=== PATIENT | female | born 1940 | race Hispanic/Latino ===

== ENCOUNTER 2018-09-08 12:30 | Observation (INO) | payer MEDICARE ==
[2018-09-08 12:45] VITALS: BMI 31.9
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
[2018-09-08] MEDS ORDERED: Sodium Chloride 0.9% 1,000 ML IV SCH (13:00)
--- NOTE | 2018-09-08 13:21 | CT ---
Date of service: 09/08/2018 PROCEDURE: CT HEAD WITHOUT CONTRAST. HISTORY: Code Stroke COMPARISON: None available. TECHNIQUE: Axial computed tomography images were obtained through the head/brain without intravenous contrast. Radiation dose: Total exam DLP = 823.2 mGy-cm. This CT exam was performed using one or more of the following dose reduction techniques: Automated exposure control, adjustment of the mA and/or kV according to patient size, and/or use of iterative reconstruction technique. FINDINGS: HEMORRHAGE: No intracranial hemorrhage. BRAIN: Focal of high attenuation at the left caudate head noted likely represent calcification. The possibility of acute hemorrhage is less likely. No evidence of mass effect or edema in the brain parenchyma. No atrophy or chronic microvascular ischemic changes. VENTRICLES: Unremarkable. No hydrocephalus. CALVARIUM: Unremarkable. PARANASAL SINUSES: Unremarkable as visualized. No significant inflammatory changes. MASTOID AIR CELLS: Unremarkable as visualized. No inflammatory changes. OTHER FINDINGS: None. IMPRESSION: No evidence of acute intracranial hemorrhage mass effect or midline shift. Focal high attenuation at the left caudate head likely represent dystrophic calcification. The possibility of acute hemorrhage is less likely. No evidence of adjacent edema or significant mass effect. Findings reported to the emergency room physician taking care of the patient Dr. Ortiz at 1:10 p.m. on 09/08/2018
[2018-09-08] MEDS ORDERED: Iohexol 350 MG/100 ML VIAL ONE (13:26)
[2018-09-08 13:27] LABS: BASO # 0.01 K/mm3 (0.0-2.0); BASO % 0.1 % (0.0-3.0); EOS # 0.3 (0.0-0.7); EOS % 3.5 % (1.5-5.0); LYMPH # 2.5 (1.2-3.4); LYMPH % 34.1 % (22.0-35.0); MEAN CELL VOLUME 89.2 fl (80.0-105.0); MEAN CORPUSCULAR HEMOGLOBIN 28.7 pg (25.0-35.0); MEAN CORPUSCULAR HGB CONC 32.2 g/dl (31.0-37.0); MEAN PLATELET VOLUME 9.4 fl (7.0-11.0); MONO # 0.7 (0.1-0.6); MONO % 9.1 % (1.0-6.0); RBC 4.18 10^6/uL (3.5-6.1); RED CELL DISTRIBUTION WIDTH 13.6 % (11.5-14.5); WHITE BLOOD COUNT 7.4 10^3/uL (4.5-11.0)
[2018-09-08 13:35] LABS: INR 0.96; PARTIAL THROMBOPLASTIN TIME 31.7 Seconds (26.9-38.3); PROTHROMBIN TIME 10.8 SECONDS (9.4-12.5)
--- NOTE | 2018-09-08 13:45 | RAD ---
Date of service: 09/08/2018 HISTORY: Code Stroke COMPARISON: Comparison is made with 03/30/2014 FINDINGS: LUNGS: No active pulmonary disease. PLEURA: No significant pleural effusion identified, no pneumothorax apparent. CARDIOVASCULAR: No aortic atherosclerotic calcification present. Normal cardiac size. No pulmonary vascular congestion. OSSEOUS STRUCTURES: No significant abnormalities. VISUALIZED UPPER ABDOMEN: Normal. OTHER FINDINGS: None. IMPRESSION: No active disease.
[2018-09-08 13:49] LABS: ALB/GLOB RATIO 1.4 (1.1-1.8); ALBUMIN 4.2 g/dL (3.0-4.8); ALT/SGPT 9 U/L (7-56); AST/SGOT 22 U/L (14-36); BLOOD UREA NITROGEN 22 mg/dL (7-21); CALCIUM 9.4 mg/dL (8.4-10.5); GFR NON-AFRICAN AMERICAN > 60; HDL CHOLESTEROL 69 mg/dL (29-60)
[2018-09-08 14:00] LABS: LDL CHOLESTEROL 75 mg/dL (0-129)
[2018-09-08 14:04] LABS: TROPONIN I < 0.01 ng/mL
--- NOTE | 2018-09-08 14:25 | CARD ---
APPROVED REPORT Date of service: 09/08/2018 EKG Measurement Heart [id number] <Conclusion> Normal sinus rhythm Inferior-posterior infarct, age undetermined Abnormal ECG
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
--- NOTE | 2018-09-08 14:59 | CT ---
Date of service: 09/08/2018 PROCEDURE: CT Angiography of the neck and head with contrast HISTORY: cva COMPARISON: None. TECHNIQUE: Contiguous axial images of the neck and head were obtained from the vertex to the superior mediastinum in the arteriographic phase of enhancement. Coronal and sagittal reformats or also generated. IV contrast dose: 100 mL of Omnipaque 350 intravenously Radiation dose: Total exam DLP = 504.97 mGy-cm. This CT exam was performed using one or more of the following dose reduction techniques: Automated exposure control, adjustment of the mA and/or kV according to patient size, and/or use of iterative reconstruction technique. FINDINGS: RIGHT CAROTID ARTERIES: Common Carotid Artery: Normal. Carotid Bifurcation: Normal. Internal Carotid Artery:Normal. External Carotid Artery (proximal branches): Normal. LEFT CAROTID ARTERIES: Common Carotid Artery: Normal. Carotid Bifurcation: Normal. Internal Carotid Artery:Normal. External Carotid Artery (proximal branches): Normal. VERTEBRAL ARTERIES: Right Vertebral Artery: Normal. Left Vertebral Artery: Normal. OTHER FINDINGS: no aortic atherosclerotic calcification or mural plaque present. INTERNAL CEREBRAL ARTERIES: Unremarkable. The skull base, petrous, cavernous and supraclinoid segments are bilaterally widely patent. ANTERIOR CEREBRAL ARTERIES: Unremarkable. A1 and A2 segments are widely patent. Smaller distal branches unremarkable, as visualized. MIDDLE CEREBRAL ARTERIES: Unremarkable. M1 and M2 segments are widely patent. Perisylvian branches grossly symmetric. POSTERIOR CIRCULATION: Basilar Artery: Unremarkable. Distal Vertebral Arteries: Unremarkable. Posterior Cerebral Arteries: Unremarkable. Posterior Inferior Cerebellar Arteries: Unremarkable. ANEURYSM/ VASCULAR MALFORMATIONS: None. OTHER FINDINGS: IMPRESSION: No evidence of arterial occlusion or critical stenosis.
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
[2018-09-08 16:49] VITALS: O2SAT 95
[2018-09-08] MEDS ORDERED: Pneumococcal 23-Valent Vaccine IM ONE (20:53)
[2018-09-08] MEDS ORDERED: Influenza Vaccine 60 mcg/0.5 mL SYR (4YR UP) IM ONE (20:53)
[2018-09-09] MEDS ORDERED: Pantoprazole 40 mg EC Tab PO SCH (07:30)
[2018-09-09 07:32] VITALS: BP 125/62; RESP 20; TEMP 98.2
[2018-09-09 07:45] LABS: BASO # 0.01 K/mm3 (0.0-2.0); BASO % 0.2 % (0.0-3.0); EOS # 0.3 (0.0-0.7); EOS % 4.2 % (1.5-5.0); HEMOGLOBIN 11.3 g/dL (12.0-16.0); LYMPH # 2.2 (1.2-3.4); LYMPH % 36.4 % (22.0-35.0); MEAN CELL VOLUME 90.1 fl (80.0-105.0); MEAN CORPUSCULAR HEMOGLOBIN 28.6 pg (25.0-35.0); MEAN CORPUSCULAR HGB CONC 31.7 g/dl (31.0-37.0); MEAN PLATELET VOLUME 9.6 fl (7.0-11.0); MONO # 0.5 (0.1-0.6); MONO % 7.9 % (1.0-6.0); RBC 3.95 10^6/uL (3.5-6.1); RED CELL DISTRIBUTION WIDTH 13.7 % (11.5-14.5); WHITE BLOOD COUNT 5.9 10^3/uL (4.5-11.0)
[2018-09-09 08:20] LABS: ALB/GLOB RATIO 1.3 (1.1-1.8); ALBUMIN 3.8 g/dL (3.0-4.8); ALT/SGPT 16 U/L (7-56); AST/SGOT 37 U/L (14-36); BLOOD UREA NITROGEN 23 mg/dL (7-21); GFR NON-AFRICAN AMERICAN > 60
[2018-09-09] MEDS ORDERED: Levothyroxine 50 MCG TAB PO SCH (10:00)
--- NOTE | 2018-09-09 13:50 | CP.PCM.PN ---
Subjective - Date & Time of Evaluation Date of Evaluation: 09/09/18 Time of Evaluation: 13:47 - Subjective Subjective: Neurology Progress Note Mres. Rhoades was seen and examined today at bedside. Her symptoms are completely resolved. She did not have any complaints. Objective - Vital Signs/Intake and Output Vital Signs (last 24 hours): Temp Pulse Resp BP Pulse Ox 98.2 F 83 20 125/62 95 09/09/18 06:00 09/09/18 06:00 09/09/18 06:00 09/09/18 06:00 09/09/18 06:00 Intake and Output: 09/09/18 09/09/18 06:59 18:59 Intake Total 780 Balance 780 - Medications Medications: Current Medications Aspirin (Ecotrin) 81 mg PO DAILY [facility] Last Admin: 09/09/18 10:43 Dose: 81 mg Atorvastatin Calcium (Lipitor) 40 mg PO DIN [facility] Last Admin: 09/08/18 17:04 Dose: 40 mg Heparin Sodium (Porcine) (Heparin) 5,000 units SC Q8 [facility]; Protocol Last Admin: 09/09/18 05:37 Dose: 5,000 units Hydrochlorothiazide (Hydrodiuril) 25 mg PO DAILY [facility] Last Admin: 09/09/18 10:44 Dose: 25 mg Sodium Chloride (Sodium Chloride 0.9%) 1,000 mls @ 100 mls/hr IV .Q10H [facility] Last Admin: 09/08/18 15:29 Dose: 100 mls/hr Levothyroxine Sodium (Synthroid) 50 mcg PO DAILY [facility] Last Admin: 09/09/18 10:44 Dose: 50 mcg Losartan Potassium (Cozaar) 100 mg PO DAILY [facility] Last Admin: 09/09/18 10:44 Dose: 100 mg Pantoprazole Sodium (Protonix Ec Tab) 40 mg PO ACB [facility] Last Admin: 09/09/18 10:46 Dose: 40 mg - Labs Labs: 09/09/18 06:35 09/09/18 06:35 PT 10.8 SECONDS (9.4-12.5) 09/08/18 13:15 INR 0.96 09/08/18 13:15 APTT 31.7 Seconds (26.9-38.3) 09/08/18 13:15 - Constitutional Appears: Well - Head Exam Head Exam: ATRAUMATIC, NORMAL INSPECTION, NORMOCEPHALIC - Eye Exam Eye Exam: EOMI, Normal appearance, PERRL Pupil Exam: NORMAL ACCOMODATION, PERRL - ENT Exam ENT Exam: Mucous Membranes Moist, Normal Exam - Neck Exam Neck Exam: Full ROM, Normal Inspection. absent: Lymphadenopathy - Respiratory Exam Respiratory Exam: Clear to Ausculation Bilateral, NORMAL BREATHING PATTERN - Cardiovascular Exam Cardiovascular Exam: REGULAR RHYTHM, +S1, +S2. absent: Murmur - GI/Abdominal Exam GI & Abdominal Exam: Soft, Normal Bowel Sounds. absent: Tenderness - Extremities Exam Extremities Exam: Full ROM, Normal Capillary Refill, Normal Inspection. absent: Joint Swelling, Pedal Edema - Back Exam Back Exam: NORMAL INSPECTION - Neurological Exam Neurological Exam: Alert, Awake, CN II-XII Intact, Normal Gait, Oriented x3 Neuro motor strength exam: Left Upper Extremity: 5, Right Upper Extremity: 5, Left Lower Extremity: 5, Right Lower Extremity: 5 - Psychiatric Exam Psychiatric exam: Normal Affect, Normal Mood - Skin Skin Exam: Dry, Intact, Normal Color, Warm Assessment and Plan (1) TIA (transient ischemic attack) Assessment & Plan: Will continue TIA work-up. Continue aspirin 81 mg daily and Lipitor 40 mg daily for stroke prevention. CTA and CT were not concerning. Status: Acute
[2018-09-09 15:31] VITALS: PULSE 84
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
--- NOTE | 2018-09-09 20:45 | CARD ---
APPROVED REPORT Date of service: 09/09/2018 EXAM: Two-dimensional and M-mode echocardiogram with Doppler and color Doppler. INDICATION TIA 2D DIMENSIONS IVSd1.0 (0.7-1.1cm)LVDd4.5 (3.9-5.9cm) PWd1.1 (0.7-1.1cm)LVDs3.1 (2.5-4.0cm) FS (%) 30.8 %LVEF (%)58.6 (>50%) M-Mode DIMENSIONS Left Atrium (MM)3.60 (2.5-4.0cm)Aortic Root3.60 (2.2-3.7cm) Aortic Cusp Exc.2.30 (1.5-2.0cm) Aortic Valve AoV Peak Vdbvzqox709.0cm/Saida Peak GR.10mmHg Mitral Valve MV E Yezmikuf34.1cm/sMV E Peak Gr.94mmHgMV A Wtvqcxyb600.0cm/s E/A ratio0.7 TDI Lateral E' Peak V10.10cm/sMedial E' Peak V4.29cm/sE/Lateral E'9.7 E/Medial E'22.9 Tricuspid Valve TR Peak [id number]/sRAP [id number] Peak Gr.23mmHg [id number] LEFT VENTRICLE The left ventricle is normal size. There is normal left ventricular wall thickness. The left ventricular function is normal. The left ventricular ejection fraction is within the normal range. There is normal LV segmental wall motion. RIGHT VENTRICLE The right ventricle is normal size. The right ventricular systolic function is normal. ATRIA The left atrium size is normal. The right atrium size is normal. The interatrial septum is intact with no evidence for an atrial septal defect. AORTIC VALVE The aortic valve is normal in structure. No aortic regurgitation is present. There is no aortic valvular stenosis. MITRAL VALVE The mitral valve is normal in structure. Mitral regurgitation is mild. TRICUSPID VALVE The tricuspid valve is normal in structure. There is mild tricuspid regurgitation. GREAT VESSELS The aortic root is normal in size. The IVC is normal in size and collapses >50% with inspiration. PERICARDIAL EFFUSION There is no pleural effusion. There is no pericardial effusion. <Conclusion> Normal chamber size. Normal LV systolic function. Mild MR and TR.
== END 2018-09-09 16:20 | disposition home or self-care (01) ==
LOC: ED 12:30 → ERH 13:58 → 3RSO 14:31 → ERH 14:34 → 3RSO 15:47
PROVIDERS: ADMIT Internal Medicine; ATTEND Hospitalist
DX: G45.9 Transient cerebral ischemic attack, unspecified (principal); R29.700 NIHSS score 0; E03.9 Hypothyroidism, unspecified; E78.5 Hyperlipidemia, unspecified; I10 Essential (primary) hypertension; K21.9 Gastro-esophageal reflux disease without esophagitis; K22.70 Barrett's esophagus without dysplasia; Z79.82 Long term (current) use of aspirin; Z87.11 Personal history of peptic ulcer disease; Z87.442 Personal history of urinary calculi; Z87.891 Personal history of nicotine dependence; Z90.49 Acquired absence of other specified parts of digestive tract; Z80.0 Family history of malignant neoplasm of digestive organs; Z82.3 Family history of stroke
CPT/HCPCS: 36415; 70450; 70496; 70498; 71045; 80053; 80061; 82948; 83036; 83735; 84100; 84443; 84484; 85025; 85610; 85730; 86850; 86900; 93005; 93306; 96372; 97116; 97161; 99285; G0378; G8978; G8979; J1644; J7030; Q9967